=== PATIENT | female | born 1955 | race Two or more races ===

== ENCOUNTER 2019-07-04 12:35 | Emergency (ER) | payer OTHER ==
[~2019-07-04] VITALS: Ht 157.5 cm; Wt 104.3 kg
[2019-07-04] MEDS ORDERED: MORPHINE SULFATE 4 MG/ML SYR/VIAL IV ONE (13:00)
[2019-07-04] MEDS ORDERED: TETANUS-DIPTH-ACEL PERTUSSIS 0.5ML SYRG IM ONE (13:00)
[2019-07-04] MEDS ORDERED: ONDANSETRON HCL 4 MG/2 ML VIAL IV ONE (13:00)
[2019-07-04 13:37] LABS: Basophils # (auto) 0 uL; Basophils % (auto) 0.3 % (0.0-2.0); Eosinophils # (auto) 0.2 uL; Eosinophils % (auto) 1.3 % (0.0-7.0); Hematocrit 45.4 % (36.0-46.0); Hemoglobin 15.4 g/dL (12.2-16.2); Lymphocytes # (auto) 1.1 uL; Lymphocytes % (auto) 8.7 % (10.0-50.0); Mean Corpuscular Hemoglobin 28.5 pg (28.0-32.0); Mean Corpuscular Volume 83.8 fL (80.0-100.0); Monocytes # (auto) 0.8 uL; Monocytes % (auto) 6.1 % (0.0-12.0); Neutrophils # (auto) 10.7 uL; Neutrophils % (auto) 83.6 % (37.0-80.0); Platelet Count (auto) 217 10^3/uL (140-450); Red Blood Cells 5.41 10^6/uL (4.0-5.20); Red Cell Distribution Width 14.5 % (11.8-14.3); White Blood Cell 12.8 10^3/uL (4.4-10.8)
[2019-07-04 13:53] LABS: Anion Gap 8 (5-15); BUN/Creatinine Ratio 22.3; Blood Urea Nitrogen 21 mg/dL (7-18); Calcium 8.6 mg/dL (8.5-10.1); Carbon Dioxide 22 mmol/L (21-32); Chloride 111 mmol/L (98-107); GFR African American 77 mL/min; GFR Non-African American 64 mL/min; Glucose 155 mg/dL (74-106); Sodium 141 mmol/L (136-145)
[2019-07-04] MEDS ORDERED: HYDROmorphone HCL 2 MG/ML VL IV ONE (14:45)
[2019-07-04] MEDS ORDERED: HYDROcodone-ACET 5/325MG TAB PO ONE (16:15)
[2019-07-04] MEDS ORDERED: NEOMYCIN-BACITRACIN-POLYM UNITDOSE PKG TOP OINT TOP ONE (17:30)
[2019-07-04 17:41] VITALS: BP 126/72
== END 2019-07-04 18:16 | disposition home or self-care (01) ==
LOC: EDBD 12:35 → ER 12:35
DX: S82.251A Displaced comminuted fracture of shaft of right tibia, initial encounter for closed fracture (principal); S82.831A Other fracture of upper and lower end of right fibula, initial encounter for closed fracture; S61.216A Laceration without foreign body of right little finger without damage to nail, initial encounter; R51 Headache; Z88.0 Allergy status to penicillin; R07.89 Other chest pain; V43.52XA Car driver injured in collision with other type car in traffic accident, initial encounter; Y93.89 Activity, other specified; Y99.8 Other external cause status; Y92.410 Unspecified street and highway as the place of occurrence of the external cause
CPT/HCPCS: 12001; 29515; 36415; 71045; 73130; 73610; 73630; 80048; 83880; 84484; 85025; 90471; 90715; 93005; 96374; 96375; 99284; J1170; J2270; J2405

== ENCOUNTER → 2021-09-09 | Outpatient (CLI) | payer OTHER ==
[~2021-09-09] VITALS: Ht 165.1 cm; Wt 98.0 kg
[~2021-09-09] MED LIST: ADENOSINE 82 MG in GIVE UN-DILUTED 0 ML IV ONE; ADENOSINE 90 MG/30 ML INJ IV ONE
== END | disposition home or self-care (01) ==
LOC: Rad HDHVI 08:40
PROVIDERS: ATTEND Internal Medicine Cardiovascular Disease
DX: I11.0 Hypertensive heart disease with heart failure (principal); I50.43 Acute on chronic combined systolic (congestive) and diastolic (congestive) heart failure; R94.4 Abnormal results of kidney function studies; Z82.49 Family history of ischemic heart disease and other diseases of the circulatory system
CPT/HCPCS: 36415; 78452; 82565; 84520; 93005; 96374; 96375; A9500; J0153

== ENCOUNTER → 2021-09-10 | Outpatient (CLI) | payer OTHER ==
[~2021-09-10] MED LIST changes: -ADENOSINE 82 MG in GIVE UN-DILUTED 0 ML IV ONE; -ADENOSINE 90 MG/30 ML INJ IV ONE; +IOHEXOL 350 MG/ML 100ML IJ ONE
[2021-09-10 09:48] VITALS: BP 147/70
[2021-09-10 10:39] VITALS: BP 122/68
== END | disposition home or self-care (01) ==
LOC: Rad HDHVI 09:39
PROVIDERS: ATTEND Internal Medicine Cardiovascular Disease
DX: I51.7 Cardiomegaly (principal); K80.20 Calculus of gallbladder without cholecystitis without obstruction; N26.1 Atrophy of kidney (terminal); N28.9 Disorder of kidney and ureter, unspecified; M47.814 Spondylosis without myelopathy or radiculopathy, thoracic region; M85.88 Other specified disorders of bone density and structure, other site; K82.8 Other specified diseases of gallbladder
CPT/HCPCS: 71260; G0463; Q9967

== ENCOUNTER → 2021-09-13 | Outpatient (CLI) | payer OTHER | END | disposition home or self-care (01) | LOC: Rad HDHVI 12:30 | PROVIDERS: ATTEND Internal Medicine Cardiovascular Disease | DX: R06.02 Shortness of breath (principal) | CPT/HCPCS: 93306 ==

== ENCOUNTER 2021-10-16 12:56 | Inpatient (IN) | payer OTHER ==
[~2021-10-16] VITALS: Ht 154.9 cm; Wt 103.3 kg
[2021-10-16 15:13] LABS: Basophils # (auto) 0 10 ^3/uL (0-0.2); Basophils % (auto) 0.4 % (0.0-2.0); Eosinophils # (auto) 0.2 10 ^3/uL (0-0.8); Eosinophils % (auto) 1.9 % (0.0-7.0); Hematocrit 41.2 % (36.0-46.0); Lymphocytes # (auto) 1.4 10 ^3/uL (0.4-5.4); Lymphocytes % (auto) 15.8 % (10.0-50.0); Mean Corpuscular Hemoglobin 28.9 pg (28.0-32.0); Mean Corpuscular Hgb Conc. 34.1 g/dL (32.0-36.0); Mean Corpuscular Volume 84.7 fL (80.0-100.0); Monocytes # (auto) 0.7 10 ^3/uL (0-1.3); Monocytes % (auto) 7.6 % (0.0-12.0); Neutrophils # (auto) 6.7 10 ^3/uL (1.6-8.6); Neutrophils % (auto) 74.3 % (37.0-80.0); Nucleated Red Blood Cells % 0.1 %; Red Blood Cells 4.86 10^6/uL (4.0-5.20); Red Cell Distribution Width 14.4 % (11.8-14.3)
[2021-10-16 15:21] LABS: Albumin 3.3 g/dL (3.4-5.0); Calcium 8.6 mg/dL (8.5-10.1); Magnesium 2.1 mg/dL (1.6-2.6); Potassium 4.1 mmol/L (3.5-5.1)
[2021-10-16 15:23] LABS: BUN/Creatinine Ratio 24.6
[2021-10-16 15:28] LABS: Bilirubin, Total 0.8 mg/dL (0.2-1.0); Total Protein 6.5 g/dL (6.4-8.2)
[2021-10-16 15:30] LABS: INR 1.05 (0.9-1.15); Partial Thromboplastin Time 27.8 sec (23.6-33.0)
[2021-10-16] MEDS ORDERED: IOHEXOL 350 MG/ML 100ML IJ ONE (16:06)
[2021-10-16] MEDS ORDERED: MORPHINE SULFATE INJECTION 2 MG/ML SYRG IV PRN (17:45)
[2021-10-16] MEDS ORDERED: cefTRIAXone 1GM/50ML D5W 50 ML IV ONE (17:45)
[2021-10-16] MEDS ORDERED: NITROGLYCERIN 0.4 MG SL TAB SL PRN (17:45)
[2021-10-16] MEDS ORDERED: levoFLOXacin 750MG 150 ML IV ONE (18:45)
[2021-10-16 21:25] LABS: Magnesium 2.2 mg/dL (1.6-2.6); Phosphorus 2.8 mg/dL (2.5-4.90)
[2021-10-16 21:45] VITALS: BP 134/66
[2021-10-16] MEDS ORDERED: DOCUSATE SOD 100 MG CAP PO PRN (21:45)
[2021-10-16] MEDS ORDERED: hydrALAZINE HCL 20 MG/ML VL IV PRN (21:45)
[2021-10-16] MEDS ORDERED: ONDANSETRON HCL 4 MG/2 ML VIAL IV PRN (21:45)
[2021-10-16] MEDS ORDERED: PANTOPRAZOLE 40 MG/10 ML VIAL INJ IV ONE (21:45)
[2021-10-16] MEDS ORDERED: BUDESONIDE (INHALATION) 0.5 MG/2 ML NEB NEB ONE (21:45)
[2021-10-16] MEDS ORDERED: FERROUS SULFATE 325mg EC TAB PO ONE (21:45)
[2021-10-16] MEDS ORDERED: FOLIC ACID 1 MG TAB PO ONE (21:45)
[2021-10-16] MEDS ORDERED: HYDROcodone-ACET 5/325MG TAB PO ONE (21:45)
[2021-10-16] MEDS ORDERED: MONTELUKAST SODIUM 10 MG TAB PO ONE (21:45)
[2021-10-16] MEDS ORDERED: methylPREDNISolone SOD SUCC 125 MG/2 ML VL IV ONE (21:45)
[2021-10-16] MEDS ORDERED: LACTULOSE 20Gm/30ML SOLN PO PRN (21:45)
[2021-10-16] MEDS ORDERED: MULTIPLE VITAMINS W/ MINERALS TAB PO ONE (21:45)
[2021-10-16] MEDS ORDERED: SUCRALFATE 1 GM/10 ML ORAL SUSP PO ONE (21:45)
[2021-10-16] MEDS ORDERED: IPRATROPIUM BROM 0.5 MG/2.5ML INH SOL NEB ONE (21:45)
[2021-10-16 21:50] VITALS: BP 134/66
[2021-10-16] MEDS ORDERED: ACETYLCYSTEINE 10 %(100MG/ML) SOL 4ML NEB SCH (22:00)
[2021-10-16 22:03] LABS: INR 1.02 (0.9-1.15); Partial Thromboplastin Time 29.4 sec (23.6-33.0)
[2021-10-16] MEDS: ALBUTEROL SULF 2.5 MG/0.5ML(0.5%) NEB SOLN NEB SCH (23:06)
[2021-10-16] MEDS: IPRATROPIUM BROM 0.5 MG/2.5ML INH SOL NEB SCH (23:06)
[2021-10-16] MEDS: POTASSIUM CHL 20 Meq TABLET PO SCH (23:17)
[2021-10-16] MEDS: ATORVASTATIN 20 MG TAB PO SCH (23:17)
[2021-10-16 23:41] VITALS: BP 134/66
[2021-10-17] VITALS (7 sets, daily range): BP systolic 118–135; BP diastolic 71–97
[2021-10-17] MEDS: ALBUTEROL SULF 2.5 MG/0.5ML(0.5%) NEB SOLN NEB SCH ×6 (03:21→22:27)
[2021-10-17] MEDS: IPRATROPIUM BROM 0.5 MG/2.5ML INH SOL NEB SCH ×6 (03:21→22:27)
[2021-10-17] MEDS ORDERED: FUROSEMIDE 20 MG/2 ML VIAL IV SCH (06:00)
[2021-10-17] MEDS: methylPREDNISolone SOD SUCC 40 MG/ML VL IV SCH ×3 (06:06→22:15)
[2021-10-17] MEDS: SUCRALFATE 1 GM/10 ML ORAL SUSP PO SCH ×4 (07:00→22:14)
[2021-10-17] MEDS ORDERED: MULTIPLE VITAMINS W/ MINERALS TAB PO ONE (07:15)
[2021-10-17] MEDS: FERROUS SULFATE 325mg EC TAB PO SCH ×3 (08:00→17:33)
[2021-10-17] MEDS: PANTOPRAZOLE 40 MG/10 ML VIAL INJ IV SCH (08:53)
[2021-10-17] MEDS: ASPirin 81 mg TAB PO SCH (08:54)
[2021-10-17] MEDS: MULTIPLE VITAMINS W/ MINERALS TAB PO SCH (08:54)
[2021-10-17] MEDS: CYANOCOBALAMIN 500 MCG TAB PO SCH (08:54)
[2021-10-17] MEDS: THIAMINE HCL 100 MG TAB PO SCH (08:54)
[2021-10-17] MEDS: SACUBITRIL-VALSARTAN 24mg/26mg TAB PO SCH (08:54)
[2021-10-17] MEDS: FOLIC ACID 1 MG TAB PO SCH (08:54)
[2021-10-17] MEDS: ENOXAPARIN SOD 40 MG/0.4 ML SYRINGE SC SCH (08:55)
[2021-10-17] MEDS: CHOLECALCIFEROL (VITD3) 2,000 UNIT CAP/TAB PO SCH (08:55)
[2021-10-17 09:20] LABS: Basophils # (auto) 0 10 ^3/uL (0-0.2); Basophils % (auto) 0.1 % (0.0-2.0); Eosinophils # (auto) 0 10 ^3/uL (0-0.8); Hemoglobin 15.1 g/dL (12.2-16.2); Lymphocytes # (auto) 0.5 10 ^3/uL (0.4-5.4); Lymphocytes % (auto) 6.5 % (10.0-50.0); Mean Corpuscular Hemoglobin 29.5 pg (28.0-32.0); Mean Corpuscular Volume 84.1 fL (80.0-100.0); Monocytes # (auto) 0 10 ^3/uL (0-1.3); Monocytes % (auto) 0.6 % (0.0-12.0); Neutrophils # (auto) 6.6 10 ^3/uL (1.6-8.6); Neutrophils % (auto) 92.8 % (37.0-80.0); Nucleated Red Blood Cells % 0.1 %; Red Blood Cells 5.11 10^6/uL (4.0-5.20); Red Cell Distribution Width 14.3 % (11.8-14.3); White Blood Cell 7.2 10^3/uL (4.4-10.8)
[2021-10-17 09:27] LABS: INR 1.06 (0.9-1.15); Partial Thromboplastin Time 31.9 sec (23.6-33.0)
[2021-10-17 09:33] LABS: Blood Urea Nitrogen 16 mg/dL (7-18); Chloride 108 mmol/L (98-107); Glucose 171 mg/dL (74-106); Potassium 4.2 mmol/L (3.5-5.1); Sodium 138 mmol/L (136-145)
[2021-10-17 09:41] LABS: Alanine Aminotransferase 29 U/L (13-56); Albumin 3.8 g/dL (3.4-5.0); Alkaline Phosphatase 183 U/L (45-117); Anion Gap 8 (5-15); Aspartate Aminotransferase 21 U/L (15-37); BUN/Creatinine Ratio 17.6; Bilirubin, Total 1.2 mg/dL (0.2-1.0); CRP High Sensitivity 0.89 mg/dL (< 0.3); Carbon Dioxide 22 mmol/L (21-32); Cholesterol 236 mg/dL (< 200); Creatine Kinase IFCC 41 U/L (26-192); GFR African American 80 mL/min; GFR Non-African American 66 mL/min; HDL Cholesterol 87 mg/dL (40-59); LDL Cholesterol 136 mg/dL (< 100); Lipase 67 U/L (73-393); Phosphorus 3.1 mg/dL (2.5-4.90); Total Protein 7.8 g/dL (6.4-8.2); Triglycerides 73 mg/dL (< 150); Uric Acid 5.7 mg/dL (2.6-6.0)
[2021-10-17] MEDS: levoFLOXacin 750MG 150 ML IV SCH (10:00)
[2021-10-17] MEDS: POTASSIUM CHL 20 Meq TABLET PO SCH ×2 (10:00→22:16)
[2021-10-17] MEDS: HYDROcodone-ACET 5/325MG TAB PO PRN ×2 (10:01→17:41)
[2021-10-17] MEDS: BUDESONIDE (INHALATION) 0.5 MG/2 ML NEB NEB SCH ×2 (10:10→22:27)
[2021-10-17] MEDS: LORazepam 0.5 MG TAB PO PRN (11:59)
[2021-10-17] MEDS: MORPHINE SULFATE INJECTION 2 MG/ML SYRG IV PRN (15:25)
[2021-10-17] MEDS: FUROSEMIDE 20 MG/2 ML VIAL IV SCH (17:33)
[2021-10-17] MEDS: ACETAMINOPHEN 325 MG TAB PO PRN (17:42)
[2021-10-17] MEDS ORDERED: ZOLPIDEM TARTRATE 5 MG TAB PO ONE (18:15)
[2021-10-17] MEDS: MONTELUKAST SODIUM 10 MG TAB PO SCH (22:16)
[2021-10-17] MEDS: ATORVASTATIN 20 MG TAB PO SCH (22:16)
[2021-10-18] MEDS: IPRATROPIUM BROM 0.5 MG/2.5ML INH SOL NEB SCH ×6 (02:34→22:17)
[2021-10-18] MEDS: ALBUTEROL SULF 2.5 MG/0.5ML(0.5%) NEB SOLN NEB SCH ×6 (02:34→22:17)
[2021-10-18 04:36] LABS: Basophils # (auto) 0 10 ^3/uL (0-0.2); Basophils % (auto) 0.1 % (0.0-2.0); Eosinophils # (auto) 0 10 ^3/uL (0-0.8); Hematocrit 39.8 % (36.0-46.0); Lymphocytes # (auto) 0.8 10 ^3/uL (0.4-5.4); Lymphocytes % (auto) 7.6 % (10.0-50.0); Mean Corpuscular Hemoglobin 29.4 pg (28.0-32.0); Mean Corpuscular Hgb Conc. 35.2 g/dL (32.0-36.0); Mean Corpuscular Volume 83.6 fL (80.0-100.0); Monocytes # (auto) 0.3 10 ^3/uL (0-1.3); Monocytes % (auto) 2.4 % (0.0-12.0); Neutrophils # (auto) 9.6 10 ^3/uL (1.6-8.6); Neutrophils % (auto) 89.9 % (37.0-80.0); Red Blood Cells 4.75 10^6/uL (4.0-5.20); Red Cell Distribution Width 14.4 % (11.8-14.3); White Blood Cell 10.6 10^3/uL (4.4-10.8)
[2021-10-18 04:56] LABS: INR 1.06 (0.9-1.15); Partial Thromboplastin Time 29.9 sec (23.6-33.0)
[2021-10-18 05:00] VITALS: BP 111/56
[2021-10-18 05:03] LABS: Albumin 3.5 g/dL (3.4-5.0); Calcium 8.8 mg/dL (8.5-10.1); Magnesium 2.3 mg/dL (1.6-2.6); Potassium 3.8 mmol/L (3.5-5.1)
[2021-10-18 05:06] LABS: BUN/Creatinine Ratio 28.1; Bilirubin, Total 0.7 mg/dL (0.2-1.0); Phosphorus 3.6 mg/dL (2.5-4.90); Total Protein 6.8 g/dL (6.4-8.2)
[2021-10-18] MEDS: FUROSEMIDE 20 MG/2 ML VIAL IV SCH ×2 (06:00→17:01)
[2021-10-18] MEDS: methylPREDNISolone SOD SUCC 40 MG/ML VL IV SCH ×3 (06:00→22:18)
[2021-10-18] MEDS: SUCRALFATE 1 GM/10 ML ORAL SUSP PO SCH ×4 (07:04→22:18)
[2021-10-18] MEDS: LORazepam 0.5 MG TAB PO PRN (07:59)
[2021-10-18 08:00] VITALS: BP 114/74
[2021-10-18] MEDS: FERROUS SULFATE 325mg EC TAB PO SCH ×3 (08:00→18:22)
[2021-10-18] MEDS: PANTOPRAZOLE 40 MG/10 ML VIAL INJ IV SCH (08:39)
[2021-10-18] MEDS: ACETAMINOPHEN 325 MG TAB PO PRN ×2 (08:39→18:23)
[2021-10-18] MEDS: HYDROcodone-ACET 5/325MG TAB PO PRN ×2 (08:39→18:23)
[2021-10-18] MEDS: CHOLECALCIFEROL (VITD3) 2,000 UNIT CAP/TAB PO SCH (08:40)
[2021-10-18] MEDS: POTASSIUM CHL 20 Meq TABLET PO SCH ×2 (08:40→22:19)
[2021-10-18] MEDS: CYANOCOBALAMIN 500 MCG TAB PO SCH (08:40)
[2021-10-18] MEDS: MULTIPLE VITAMINS W/ MINERALS TAB PO SCH (08:40)
[2021-10-18] MEDS: THIAMINE HCL 100 MG TAB PO SCH (08:40)
[2021-10-18] MEDS: ASPirin 81 mg TAB PO SCH (08:40)
[2021-10-18] MEDS: FOLIC ACID 1 MG TAB PO SCH (08:40)
[2021-10-18] MEDS: SACUBITRIL-VALSARTAN 24mg/26mg TAB PO SCH (08:40)
[2021-10-18] MEDS: ENOXAPARIN SOD 40 MG/0.4 ML SYRINGE SC SCH (08:40)
[2021-10-18] MEDS: levoFLOXacin 750MG 150 ML IV SCH (10:00)
[2021-10-18] MEDS: MORPHINE SULFATE INJECTION 2 MG/ML SYRG IV PRN (10:17)
[2021-10-18] MEDS: BUDESONIDE (INHALATION) 0.5 MG/2 ML NEB NEB SCH ×2 (10:43→19:26)
[2021-10-18 12:15] VITALS: BP 114/79
[2021-10-18 16:10] VITALS: BP 113/77
[2021-10-18 22:00] VITALS: BP 110/72
[2021-10-18] MEDS ORDERED: ZOLPIDEM TARTRATE 5 MG TAB PO PRN (22:00)
[2021-10-18] MEDS ORDERED: ZOLPIDEM TARTRATE 5 MG TAB PO ONE (22:00)
[2021-10-18] MEDS: ATORVASTATIN 20 MG TAB PO SCH (22:19)
[2021-10-18] MEDS: MONTELUKAST SODIUM 10 MG TAB PO SCH (22:19)
[2021-10-19] MEDS: IPRATROPIUM BROM 0.5 MG/2.5ML INH SOL NEB SCH ×6 (02:00→21:26)
[2021-10-19] MEDS: ALBUTEROL SULF 2.5 MG/0.5ML(0.5%) NEB SOLN NEB SCH ×6 (02:00→21:26)
[2021-10-19 05:00] VITALS: BP 112/70
[2021-10-19] MEDS: BUDESONIDE (INHALATION) 0.5 MG/2 ML NEB NEB SCH ×2 (05:59→18:03)
[2021-10-19] MEDS: FUROSEMIDE 20 MG/2 ML VIAL IV SCH (06:26)
[2021-10-19] MEDS: methylPREDNISolone SOD SUCC 40 MG/ML VL IV SCH ×3 (06:26→22:19)
[2021-10-19] MEDS: SUCRALFATE 1 GM/10 ML ORAL SUSP PO SCH ×4 (06:46→22:19)
[2021-10-19 08:05] VITALS: BP 141/71
[2021-10-19] MEDS: FERROUS SULFATE 325mg EC TAB PO SCH ×3 (08:20→17:51)
[2021-10-19] MEDS: HYDROcodone-ACET 5/325MG TAB PO PRN (08:21)
[2021-10-19] MEDS: PANTOPRAZOLE 40 MG/10 ML VIAL INJ IV SCH (09:57)
[2021-10-19] MEDS: ASPirin 81 mg TAB PO SCH (09:57)
[2021-10-19] MEDS: levoFLOXacin 750MG 150 ML IV SCH (09:57)
[2021-10-19] MEDS: CYANOCOBALAMIN 500 MCG TAB PO SCH (09:58)
[2021-10-19] MEDS: MULTIPLE VITAMINS W/ MINERALS TAB PO SCH (09:58)
[2021-10-19] MEDS: FOLIC ACID 1 MG TAB PO SCH (09:58)
[2021-10-19] MEDS: THIAMINE HCL 100 MG TAB PO SCH (09:59)
[2021-10-19] MEDS: POTASSIUM CHL 20 Meq TABLET PO SCH (09:59)
[2021-10-19] MEDS: SACUBITRIL-VALSARTAN 24mg/26mg TAB PO SCH (09:59)
[2021-10-19] MEDS: ENOXAPARIN SOD 40 MG/0.4 ML SYRINGE SC SCH (10:00)
[2021-10-19] MEDS: CHOLECALCIFEROL (VITD3) 2,000 UNIT CAP/TAB PO SCH (10:00)
[2021-10-19 12:32] VITALS: BP 123/56
[2021-10-19 16:00] VITALS: BP 143/70
[2021-10-19 20:55] VITALS: BP 143/70
[2021-10-19 22:00] VITALS: BP 106/63
[2021-10-19] MEDS: ATORVASTATIN 20 MG TAB PO SCH (22:19)
[2021-10-20] MEDS: ALBUTEROL SULF 2.5 MG/0.5ML(0.5%) NEB SOLN NEB SCH ×4 (01:28→14:38)
[2021-10-20] MEDS: IPRATROPIUM BROM 0.5 MG/2.5ML INH SOL NEB SCH ×4 (01:28→14:38)
[2021-10-20 05:00] VITALS: BP 100/56
[2021-10-20] MEDS: SUCRALFATE 1 GM/10 ML ORAL SUSP PO SCH ×3 (07:00→17:39)
[2021-10-20 08:14] VITALS: BP 113/65
[2021-10-20 08:46] VITALS: BP 113/65
[2021-10-20 08:48] LABS: Magnesium 3.2 mg/dL (1.6-2.6)
[2021-10-20 08:50] LABS: BUN/Creatinine Ratio 40.7
[2021-10-20] MEDS ORDERED: ALBU108A5 INH (09:48)
[2021-10-20] MEDS ORDERED: ATOR10TA52 PO ×2 (09:48)
[2021-10-20] MEDS ORDERED: FUR20T PO ×2 (09:48)
[2021-10-20] MEDS ORDERED: SACU1TAB PO (09:48)
[2021-10-20] MEDS ORDERED: POTA-167 PO (09:48)
[2021-10-20] MEDS: FERROUS SULFATE 325mg EC TAB PO SCH ×3 (10:05→17:39)
[2021-10-20] MEDS: ASPirin 81 mg TAB PO SCH (10:06)
[2021-10-20] MEDS: CHOLECALCIFEROL (VITD3) 2,000 UNIT CAP/TAB PO SCH (10:06)
[2021-10-20] MEDS: ENOXAPARIN SOD 40 MG/0.4 ML SYRINGE SC SCH (10:06)
[2021-10-20] MEDS: BUDESONIDE (INHALATION) 0.5 MG/2 ML NEB NEB SCH (10:07)
[2021-10-20] MEDS: PANTOPRAZOLE 40 MG/10 ML VIAL INJ IV SCH (10:49)
[2021-10-20] MEDS: methylPREDNISolone SOD SUCC 40 MG/ML VL IV SCH (10:49)
[2021-10-20] MEDS: levoFLOXacin 750MG 150 ML IV SCH (10:49)
[2021-10-20 13:00] VITALS: BP_SYST 101; BP_SYST 131; BP_DIAS 61; BP_DIAS 74
[2021-10-20] MEDS ORDERED: PRED20TA2 PO (14:20)
[2021-10-20] MEDS ORDERED: LEVO750T8 PO (14:20)
[2021-10-20] MEDS ORDERED: CHOL20007 PO (14:20)
[2021-10-20] MEDS ORDERED: ATOR20TA PO (14:20)
[2021-10-20] MEDS ORDERED: FAMO20TA10 PO (14:20)
[2021-10-20 17:00] VITALS: BP 110/70
== END 2021-10-20 18:50 | disposition home or self-care (01) | DRG 177 ==
LOC: ER 12:56 → TELE 17:40 → TELE-WESTW 21:30
PROVIDERS: ADMIT Hospitalist; ATTEND Internal Medicine
DX: J15.6 Pneumonia due to other Gram-negative bacteria (principal); J96.01 Acute respiratory failure with hypoxia; J44.1 Chronic obstructive pulmonary disease with (acute) exacerbation; J45.901 Unspecified asthma with (acute) exacerbation; J44.0 Chronic obstructive pulmonary disease with (acute) lower respiratory infection; Z68.41 Body mass index [BMI] 40.0-44.9, adult; I89.0 Lymphedema, not elsewhere classified; E78.5 Hyperlipidemia, unspecified; E66.01 Morbid (severe) obesity due to excess calories; Z20.822 Contact with and (suspected) exposure to COVID-19; E55.9 Vitamin D deficiency, unspecified; Z85.038 Personal history of other malignant neoplasm of large intestine; Z88.0 Allergy status to penicillin
CPT/HCPCS: 36415; 36600; 71045; 71275; 74176; 80048; 80053; 80061; 82306; 82550; 82728; 82805; 83036; 83605; 83615; 83690; 83735; 83880; 84100; 84260; 84439; 84443; 84484; 84550; 85025; 85379; 85610; 85652; 85730; 86141; 93005; 93970; 93971; 94640; 96365; C9113; G0378; J0696; J1956; J2405